=== PATIENT | male | born 1995 | race Caucasian/White ===

== ENCOUNTER 2019-02-26 12:36 | Emergency (ER) | payer OTHER ==
[~2019-02-26] VITALS: Ht 177.8 cm; Wt 72.6 kg
--- NOTE | 2019-02-26 12:55 | ED Lower Extremity ---
General Chief Complaint: Lower Extremity Stated Complaint: LT FOOT INJ Source: patient, family Exam Limitations: no limitations History of Present Illness Date Seen by Provider: February 26, 2019 Time Seen by Provider: 12:45 Initial Comments 23-year-old male who became angry and struck up all with his left foot 3 days ago. Has had persistent pain and swelling. No other injuries reported. He states that he has an anger problem. No other medical problems concerning him were voiced when asked today. Severity: moderate Allergies and Home Medications Allergies Uncoded Allergies: PENICILLIN (Adverse Reaction, Unknown, 02/26/19) Home Medications No Active Prescriptions or Reported Meds Patient Home Medication List Home Medication List Reviewed: Yes Review of Systems Constitutional: see HPI EENTM: see HPI Respiratory: see HPI Cardiovascular: see HPI Gastrointestinal: see HPI Genitourinary: see HPI Musculoskeletal: see HPI, joint swelling Skin: see HPI Psychiatric/Neurological: No Symptoms Reported, See HPI Past Wiasmhe-Qmyala-Fjzhyt Hx Past Med/Social Hx: Reviewed Nursing Past Med/Soc Hx Physical Exam Vital Signs Vital Signs - First Documented 02/26/19 12:43 Temp 98.6 Pulse 89 Resp 20 B/P (MAP) 115/70 (85) Pulse Ox 98 O2 Delivery Room Air Capillary Refill : Height, Weight, BMI Height: '" Weight: lbs. oz. kg; BMI Method: General Appearance: WD/WN, no apparent distress HEENT: PERRL/EOMI, normal ENT inspection Neck: non-tender, full range of motion, supple, normal inspection Cardiovascular: regular rate, rhythm, no edema, no gallop, no JVD, no murmur Respiratory: chest non-tender, lungs clear, normal breath sounds, no respiratory distress, no accessory muscle use Gastrointestinal: non tender, soft Back: normal inspection Hips: bilateral hip non-tender, bilateral hip normal inspection, bilateral hip normal range of motion, bilateral hip no evidence of injury Legs: bilateral leg non-tender, bilateral leg normal inspection, bilateral leg normal range of motion, bilateral leg no evidence of injury Knees: bilateral knee non-tender, bilateral knee normal inspection, bilateral knee normal range of motion, bilateral knee no evidence of injury Ankles: bilateral ankle non-tender, bilateral ankle normal inspection, bilateral ankle normal range of motion, bilateral ankle no evidence of injury Feet: right foot non-tender; left foot normal inspection; right foot normal range of motion; left foot no evidence of injury, left foot bone tenderness, left foot limited range of motion, left foot soft tissue tenderness Reflexes: 2+ knee (R), 2+ knee (L) Neurologic/Tendon: normal sensation, normal motor functions, normal tendon functions, responds to pain Neurologic/Psychiatric: alert, oriented x 3 Skin: normal color, warm/dry, tattoos/piercings Lymphatic: no adenopathy Progress/Results/Core Measures Results/Orders My Orders Orders - DAHLIA RAUSCH MD Foot 3 View Left (02/26/19 12:50) Vital Signs/I&O 02/26/19 12:43 Temp 98.6 Pulse 89 Resp 20 B/P (MAP) 115/70 (85) Pulse Ox 98 O2 Delivery Room Air Diagnostic Imaging Diagonstic Imaging: Xray Comments NAME: KAVYA SILVER MED REC#: [id number] PT STATUS: REG ER : 1995 PHYSICIAN: DAHLIA RAUSCH MD ADMIT DATE: 02/26/19/ER FS Draft Date of Exam:02/26/19 FOOT 3 VIEW LEFT Indication: Left foot injury. Time of exam 12:45 PM The metatarsals appear to be intact. Phalanges are intact. Midfoot and hindfoot are unremarkable. No fractures are seen. Impression: No acute bony abnormality is detected. Dictated on workstation # [id number] Dict: 02/26/19 1312 Trans: 02/26/19 1313 [facility] [id number] Interpreted by: VAHID PALMA MD Electronically signed by: Departure Impression Primary Impression: Contusion of foot Qualified Codes: S90.32XA - Contusion of left foot, initial encounter Disposition: HOME, SELF-CARE Condition: Stable Departure-Patient Inst. Decision time for Depature: 13:19 Referrals: NO,LOCAL PHYSICIAN (PCP/Family) Primary Care Physician 2-3 days Patient Instructions: Contusion (DC) Scripts No Active Prescriptions or Reported Meds DAHLIA RAUSCH MD February 26, 2019 12:55
--- NOTE | 2019-02-26 13:13 | Diagnostic Imaging Report ---
Indication: Left foot injury. Time of exam 12:45 PM The metatarsals appear to be intact. Phalanges are intact. Midfoot and hindfoot are unremarkable. No fractures are seen. Impression: No acute bony abnormality is detected. Dictated by: Dictated on workstation # [id number]
[2019-02-26 13:35] VITALS: BP 115/70
== END 2019-02-26 13:35 | disposition home or self-care (01) ==
LOC: ER FS 12:39
DX: S90.32XA Contusion of left foot, initial encounter (principal); Z88.0 Allergy status to penicillin; W22.09XA Striking against other stationary object, initial encounter
CPT/HCPCS: 73630